=== PATIENT | male | born 1980 | race Two or more races ===

== ENCOUNTER 2017-06-02 19:29 | Emergency (ER) | payer MEDICARE, MEDICAID ==
[~2017-06-02] VITALS: Ht 170.2 cm; Wt 82.6 kg
[~2017-06-02 19:29] MED LIST: ATENOLOL25 MG ORAL; XANAX0.25 MG ORAL
[2017-06-02] MEDS ORDERED: LORazepam Inj 2mg/ml 1ml IV ONE (19:45)
[2017-06-02 20:00] LABS: HEMOGLOBIN 14.6 G/DL (14.2-18.0); MEAN CORPUSCULAR VOLUME 86 FL (80-99); PLATELET COUNT 373 K/UL (150-450); RED BLOOD COUNT 5.47 M/UL (4.70-6.10); WHITE BLOOD COUNT 15.5 K/UL (4.8-10.8)
[2017-06-02 20:17] LABS: ALANINE AMINOTRANSFERASE 52 U/L (12-78); ALBUMIN 4.3 G/DL (3.4-5.0); ALBUMIN/GLOBULIN RATIO 0.9 (1.0-2.7); ALKALINE PHOSPHATASE 100 U/L (46-116); ANION GAP 12 mmol/L (5-15); ASPARTATE AMINO TRANSFERASE 26 U/L (15-37); BILIRUBIN,TOTAL 0.8 MG/DL (0.2-1.0); BLOOD UREA NITROGEN 16 mg/dL (7-18); CALCIUM 9.6 MG/DL (8.5-10.1); CARBON DIOXIDE 26 MMOL/L (21-32); CHLORIDE 101 MMOL/L (98-107); CREATININE 1.4 MG/DL (0.55-1.30); POTASSIUM 3.9 MMOL/L (3.5-5.1); SODIUM 139 MMOL/L (136-145)
[2017-06-02 20:26] LABS: CKMB 7.2 NG/ML (0.0-3.6); CREATINE KINASE 576 U/L (26-308)
[2017-06-02 20:46] LABS: APPEARANCE,URINE CLEAR; BILIRUBIN, URINE NEGATIVE (NEGATIVE); GLUCOSE, URINE (UA) NEGATIVE (NEGATIVE); KETONES,URINE 1+ (NEGATIVE); LEUKOCYTE ESTERASE ,URINE 1+ (NEGATIVE); NITRITE,URINE NEGATIVE (NEGATIVE); PH,URINE 5 (4.5-8.0); PROTEIN,URINE 2+ (NEGATIVE); UROBILINOGEN,URINE NORMAL MG/DL (0.0-1.0)
[2017-06-02 20:48] LABS: COLOR,URINE YELLOW
--- NOTE | 2017-06-02 21:42 | Emergency Room Report ---
History of Present Illness General Chief Complaint: Overdose Source: Patient, EMS Present Illness HPI Patient presents with weakness and dizziness after abusing methamphetamine for several days. The patient's felt this way before. He also is complaining of chest pain. He states he's had 2 heart attacks in the past. The chest pain is 4/10. He denies CP to staff certified nurse midwife. No fevers, sore throat, NVD, dysuria. He denies SI or HI. He is disabled from learning disability. Allergies: Coded Allergies: No Known Allergies (Unverified , 06/02/17) Patient History Past Medical History: see triage record Social History: Reports: smoking, drug use Social History Narrative disabled - learning disability Reviewed Nursing Documentation: PMH: Agreed, PSxH: Agreed Review of Systems All Other Systems: negative except mentioned in HPI Physical Exam Vital Signs Date Time Temp Pulse Resp B/P (MAP) Pulse Ox O2 Delivery O2 Flow Rate FiO2 06/02/17 19:20 98.4 125 18 141/104 99 Room Air Sp02 EP Interpretation: reviewed, normal General Appearance: well appearing, no apparent distress, GCS 15 Head: normocephalic Eyes: bilateral eye PERRL, bilateral eye Scleral Injection ENT: moist mucus membranes - poor dentition Neck: supple Respiratory: lungs clear, normal breath sounds Cardiovascular #1: tachycardia Cardiovascular #2: 2+ radial (R) Gastrointestinal: normal inspection, normal bowel sounds, non tender, no mass, non-distended, scaphoid Musculoskeletal: back normal, gait/station normal, normal range of motion Neurologic: alert, oriented x3, grossly normal Psychiatric: no suicidal/homicidal ideation, depressed affect Skin: normal inspection, warm/dry Medical Decision Making Diagnostic Impression: Primary Impression: Drug overdose Qualified Codes: T50.904A - Poisoning by unspecified drugs, medicaments and biological substances, undetermined, initial encounter Additional Impressions: Tachycardia Learning disability ER Course The patient presents with tachycardia weakness and chest pain after abusing methamphetamine. Differential includes acute myocardial infarction, arrhythmia , dehydration, toxic effects of methamphetamine, electrolyte abnormalities amongst others. The patient is tachycardic at this time and needs acute evaluation with EKG, chest x-ray and labs. The patient will receive IV hydration and also Ativan. The patient received aspirin in the field. The patient's labs are significant for pyuria and amphetamines. In addition to that his initial troponin is negative. His chest x-ray is unremarkable. The patient is clinically improving but still tachycardic. Another saline bolus is given to the patient. D dimer added as still tachycardic. D dimer negative. Patient found to be on beta steffany. Metoprolol given IV. Improved HR. Patient denies SI or HI. Never with 12 step. Discussed this. Signed out to Dr. Hurt. Laboratory Tests Test 06/02/17 19:45 06/02/17 20:20 White Blood Count 15.5 K/UL (4.8-10.8) H Red Blood Count 5.47 M/UL (4.70-6.10) Hemoglobin 14.6 G/DL (14.2-18.0) Hematocrit 47.0 % (42.0-52.0) Mean Corpuscular Volume 86 FL (80-99) Mean Corpuscular Hemoglobin 26.8 PG (27.0-31.0) L Mean Corpuscular Hemoglobin Concent 31.1 G/DL (32.0-36.0) L Red Cell Distribution Width 14.0 % (11.6-14.8) Platelet Count 373 K/UL (150-450) Mean Platelet Volume 6.5 FL (6.5-10.1) Neutrophils (%) (Auto) % (45.0-75.0) Lymphocytes (%) (Auto) % (20.0-45.0) Monocytes (%) (Auto) % (1.0-10.0) Eosinophils (%) (Auto) % (0.0-3.0) Basophils (%) (Auto) % (0.0-2.0) Differential Total Cells Counted 100 Neutrophils % (Manual) 92 % (45-75) H Lymphocytes % (Manual) 5 % (20-45) L Monocytes % (Manual) 3 % (1-10) Eosinophils % (Manual) 0 % (0-3) Basophils % (Manual) 0 % (0-2) Band Neutrophils 0 % (0-8) Platelet Estimate Adequate Platelet Morphology Normal Red Blood Cell Morphology Normal D-Dimer 1.00 mg/L FEU (0.00-0.49) H Sodium Level 139 MMOL/L (136-145) Potassium Level 3.9 MMOL/L (3.5-5.1) Chloride Level 101 MMOL/L (98-107) Carbon Dioxide Level 26 MMOL/L (21-32) Anion Gap 12 mmol/L (5-15) Blood Urea Nitrogen 16 mg/dL (7-18) Creatinine 1.4 MG/DL (0.55-1.30) H Estimate Glomerular Filtration Rate 56.7 mL/min (>60) Glucose Level 127 MG/DL (74-106) H Calcium Level 9.6 MG/DL (8.5-10.1) Total Bilirubin 0.8 MG/DL (0.2-1.0) Aspartate Amino Transferase (AST) 26 U/L (15-37) Alanine Aminotransferase (ALT) 52 U/L (12-78) Alkaline Phosphatase 100 U/L (46-116) Total Creatine Kinase 576 U/L (26-308) H Creatine Kinase MB 7.2 NG/ML (0.0-3.6) H Creatine Kinase MB Relative Index 1.2 Troponin I 0.012 ng/mL (0.000-0.056) Total Protein 9.1 G/DL (6.4-8.2) H Albumin 4.3 G/DL (3.4-5.0) Globulin 4.8 g/dL Albumin/Globulin Ratio 0.9 (1.0-2.7) L Salicylates Level 1.0 ug/mL (2.8-20) L Acetaminophen Level < 10 MCG/ML (10-30) L Serum Alcohol < 3 mg/dL Urine Color Yellow Urine Appearance Clear Urine pH 5 (4.5-8.0) Urine Specific [place] 1.025 (1.005-1.035) Urine Protein 2+ (NEGATIVE) H Urine Glucose (UA) Negative (NEGATIVE) Urine Ketones 1+ (NEGATIVE) H Urine Occult Blood 1+ (NEGATIVE) H Urine Nitrite Negative (NEGATIVE) Urine Bilirubin Negative (NEGATIVE) Urine Urobilinogen Normal MG/DL (0.0-1.0) Urine Leukocyte Esterase 1+ (NEGATIVE) H Urine RBC 2-4 /HPF (0 - 0) H Urine WBC 5-10 /HPF (0 - 0) H Urine Squamous Epithelial Cells None /LPF (NONE/OCC) Urine Amorphous Sediment Few /LPF (NONE) H Urine Bacteria Moderate /HPF (NONE) H Urine Opiates Screen Negative (NEGATIVE) Urine Barbiturates Screen Negative (NEGATIVE) Phencyclidine (PCP) Screen Negative (NEGATIVE) Urine Amphetamines Screen Positive (NEGATIVE) H Urine Benzodiazepines Screen Negative (NEGATIVE) Urine Cocaine Screen Negative (NEGATIVE) Urine Marijuana (THC) Screen Negative (NEGATIVE) EKG Diagnostic Results Rate: tachycardiac ST Segments: no acute changes Rhythm Strip Diag. Results EP Interpretation: yes Rhythm: no PVC's, no ectopy, other - Sinus tachycardia Chest X-Ray Diagnostic Results Chest X-Ray Diagnostic Results : Chest X-Ray Ordered: Yes # of Views/Limited/Complete: 1 View Indication: Chest Pain EP Interpretation: Yes Interpretation: no consolidation, no effusion, no pneumothorax, no acute cardiopulmonary disease Impression: No acute disease Electronically Signed by: Electronically signed by Chepe Humphries MD Last Vital Signs Date Time Temp Pulse Resp B/P (MAP) Pulse Ox O2 Delivery O2 Flow Rate FiO2 06/03/17 02:20 97.8 112 18 127/75 100 Room Air Status: improved Disposition: HOME, SELF-CARE Condition: Improved Scripts Mag Hydrox/Al Hydrox/Simeth (MAALOX MAXIMUM STRENGTH SUSP) 355 Ml Oral.susp 30 ML PO Q6HR, #240 ML Prov: Chepe Humphries M.D. 06/02/17 Acetaminophen (Tylenol) 325 Mg Tablet 650 MG ORAL Q6H Y for Prn Pain/Headache/Temp > 101, #30 TAB 0 Refills Prov: Chepe Humphries M.D. 06/02/17 Referrals: NOT CHOSEN STEFFEN/,REFERRING (PCP) Chepe Humphries M.D. Jun 02, 2017 21:42
[2017-06-02] MEDS ORDERED: cefTRIAXone 1 GM in NS 55 ML IVPB ONE (21:45)
[2017-06-02 21:52] VITALS: BP 129/74
[2017-06-02] MEDS ORDERED: TYLENOL325 MG ORAL (23:37)
[2017-06-02] MEDS ORDERED: MAALOX MAXIMUM355 M1 PO (23:37)
[2017-06-02] MEDS ORDERED: Metoprolol 5mg/5ml Inj IVP STA (23:39)
[2017-06-02 23:59] VITALS: BP 132/76
[2017-06-03 02:00] VITALS: BP 127/75
[2017-06-03 02:20] VITALS: BP 127/75
--- NOTE | 2017-06-03 09:15 | Diagnostic Imaging Report ---
Indication: CP Technique: XRAY CHEST 1 V Comparison: None. Findings: The cardiomediastinal silhouette is normal. The lungs are clear. There is no evidence of pleural fluid. The bones are unremarkable. Impression: Normal chest.
--- NOTE | 2017-06-03 14:40 | Cardiology Report ---
APPROVED REPORT EKG Measurement Heart [id number] ID [id number] Sinus tachycardia Rightward axis Borderline ECG
--- NOTE | 2017-06-03 14:40 | Cardiology Report ---
APPROVED REPORT EKG Measurement Heart [id number] [place] [id number] Sinus tachycardia Rightward axis Borderline ECG
--- NOTE | 2017-06-03 14:40 | Cardiology Report ---
APPROVED REPORT EKG Measurement Heart [id number] [place] [id number] Sinus tachycardia Rightward axis Borderline ECG
== END 2017-06-03 02:20 | disposition home or self-care (01) ==
LOC: EDBD 19:29 → EMR 20:01
DX: T43.621A Poisoning by amphetamines, accidental (unintentional), initial encounter (principal); R00.0 Tachycardia, unspecified; R53.1 Weakness; R07.9 Chest pain, unspecified; F17.200 Nicotine dependence, unspecified, uncomplicated
CPT/HCPCS: 36415; 71010; 80053; 80307; 81003; 82550; 82553; 84484; 85007; 85025; 85379; 87086; 87181; 93005; 96374; 96375; 99284; G0480; J0696; 80329